=== PATIENT | male | born 1965 | race Caucasian/White ===

== ENCOUNTER 2022-04-19 15:31 | Emergency (ER) | payer OTHER ==
[~2022-04-19] VITALS: Ht 182 cm; Wt 75.0 kg
--- NOTE | 2022-04-19 15:47 | ED Respiratory ---
General Stated Complaint: SHORTNESS OF BREATH Source: patient Exam Limitations: no limitations History of Present Illness Date Seen by Provider: Apr 19, 2022 Time Seen by Provider: 15:31 Initial Comments 57-year-old male with no pertinent past medical history other than lifelong smoker coming in due to difficulty breathing and wheezing. 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 For the past 2 weeks they have been cleaning it significantly with a lot of dust in the air. For about the past week, has noticed more wheezing, and productive cough of yellowish-white sputum. Denies any fever, does have some chest tightness with this. Otherwise denies any nausea, vomit ing, weakness, numbness, severe chest pain, or any other concerns. Has never felt this way before. No prior history of DVT or PE, no recent surgery, no leg swelling or pain, no recent long travel. Allergies and Home Medications Allergies Coded Allergies: Penicillins (Verified Allergy, Unknown, 04/19/22) Patient Home Medication List Home Medication List Reviewed: Yes Doxycycline Hyclate (Doxycycline Hyclate) 100 Mg Tablet, 100 MG PO BID Prescribed by: DANIEL LANZA on 04/19/22 1622 Ipratropium/Albuterol Sulfate (Iprat-Albut 0.5-3(2.5) mg/3 ml) 0.5 Mg-3 Mg (2.5 Mg Base)/3 Ml Ampul.neb, 3 ML IH Q4H PRN for SHORTNESS OF BREATH Prescribed by: DANIEL LANZA on 04/19/22 162 Methylprednisolone (Methylprednisolone Dose Pack) 4 Mg Tab.ds.pk, 4 MG PO UD Prescribed by: DANIEL LANZA on 04/19/22 1622 Review of Systems Review of Systems Constitutional: No fever EENTM: no symptoms reported Respiratory: see HPI Cardiovascular: no symptoms reported Gastrointestinal: no symptoms reported Genitourinary: no symptoms reported Musculoskeletal: no symptoms reported Psychiatric/Neurological: No Symptoms Reported Past Jgxyekn-Iyiokr-Zuyeux Hx Patient Social History Tobacco Use?: Yes Tobacco type used: Cigarettes Substance use?: No Alcohol Use?: Yes Alcohol type: Beer Alcohol Frequency: Once in a while Past Medical History Surgeries: Yes Orthopedic (cervical spine fusion) Physical Exam Vital Signs - First Documented 04/19/22 15:37 Temp 36.7 Pulse 113 Resp 18 B/P (MAP) 151/77 (101) Pulse Ox 94 O2 Delivery Room Air Capillary Refill : Height: '" Weight: lbs. oz. kg; BMI Method: General Appearance: WD/WN, no apparent distress Eyes: Bilateral Eye Normal Inspection HEENT: PERRL/EOMI, normal ENT inspection, pharynx normal Neck: non-tender, full range of motion, supple, normal inspection Respiratory: chest non-tender, no respiratory distress, no accessory muscle use, wheezing Cardiovascular: regular rate, rhythm, no edema, no murmur Gastrointestinal: normal bowel sounds, non tender, soft; No distended, No guarding Extremities: normal range of motion, non-tender, normal inspection, no pedal edema, no calf tenderness, normal capillary refill Neurologic/Psychiatric: no motor/sensory deficits, alert, normal mood/affect Skin: normal color, warm/dry Lymphatic: no adenopathy Progress/Results/Core Measures Suspected Sepsis SIRS Temperature: Pulse: Respiratory Rate: Laboratory Tests 04/19/22 15:47: White Blood Count 10.9 Blood Pressure / Mean: Laboratory Tests 04/19/22 15:47: Creatinine 0.83, Platelet Count 235, Total Bilirubin 0.3 Results/Orders Lab Results Laboratory Tests Test 04/19/22 15:47 Range/Units White Blood Count 10.9 4.3-11.0 10^3/uL Red Blood Count 4.94 4.30-5.52 10^6/uL Hemoglobin 15.0 13.3-17.7 g/dL Hematocrit 44 40-54 % Mean Corpuscular Volume 88 80-99 fL Mean Corpuscular Hemoglobin 30 25-34 pg Mean Corpuscular Hemoglobin Concent 34 32-36 g/dL Red Cell Distribution Width 12.3 10.0-14.5 % Platelet Count 235 130-400 10^3/uL Mean Platelet Volume 10.3 9.0-12.2 fL Immature Granulocyte % (Auto) 0 % Neutrophils (%) (Auto) 65 42-75 % Lymphocytes (%) (Auto) 23 12-44 % Monocytes (%) (Auto) 7 0-12 % Eosinophils (%) (Auto) 5 0-10 % Basophils (%) (Auto) 1 0-10 % Neutrophils # (Auto) 7.1 1.8-7.8 10^3/uL Lymphocytes # (Auto) 2.5 1.0-4.0 10^3/uL Monocytes # (Auto) 0.7 0.0-1.0 10^3/uL Eosinophils # (Auto) 0.5 H 0.0-0.3 10^3/uL Basophils # (Auto) 0.1 0.0-0.1 10^3/uL Immature Granulocyte # (Auto) 0.0 0.0-0.1 10^3/uL Sodium Level 140 135-145 MMOL/L Potassium Level 4.0 3.6-5.0 MMOL/L Chloride Level 104 98-107 MMOL/L Carbon Dioxide Level 27 21-32 MMOL/L Anion Gap 9 5-14 MMOL/L Blood Urea Nitrogen 13 7-18 MG/DL Creatinine 0.83 0.60-1.30 MG/DL Estimat Glomerular Filtration Rate 103 BUN/Creatinine Ratio 16 Glucose Level 100 70-105 MG/DL Calcium Level 9.6 8.5-10.1 MG/DL Corrected Calcium 9.2 8.5-10.1 MG/DL Total Bilirubin 0.3 0.1-1.0 MG/DL Aspartate Amino Transf (AST/SGOT) 18 5-34 U/L Alanine Aminotransferase (ALT/SGPT) 21 0-55 U/L Alkaline Phosphatase 80 40-136 U/L Troponin I < 0.30 <0.30 NG/ML Pro-B-Type Natriuretic Peptide 36.1 <125.0 PG/ML Total Protein 7.3 6.4-8.2 GM/DL Albumin 4.5 3.2-4.5 GM/DL My Orders Orders - DANIEL LANZA MD Monitor-Rhythm Ecg Trace Only (04/19/22 15:48) Pulse Oximetry Order (04/19/22 15:48) Albuterol/Ipra Inhalation Soln (Duoneb I (04/19/22 16:00) Ekg Tracing (04/19/22 15:48) Doxycycline Hyclate Tablet (Vibramycin T (04/19/22 16:00) Cbc With Automated Diff (04/19/22 15:48) Comprehensive Metabolic Panel (04/19/22 15:48) Probnp Fs (04/19/22 15:48) Troponin I Fs (04/19/22 15:48) Chest Pa/Lat (2 View) (04/19/22 15:48) Dexamethasone Injection (Decadron Injec (04/19/22 16:00) Medications Given in ED Current Medications Medications Dose Ordered Sig/Mary Route Start Time Stop Time Status Last Admin Dose Admin Albuterol/ Ipratropium 3 ml ONCE ONCE IH 04/19/22 16:00 04/19/22 16:01 DC 04/19/22 15:57 3 ML Dexamethasone Sodium Phosphate 10 mg ONCE ONCE IV 04/19/22 16:00 04/19/22 16:01 DC 04/19/22 15:57 10 MG Doxycycline Hyclate 100 mg ONCE ONCE PO 04/19/22 16:00 04/19/22 16:01 DC 04/19/22 15:57 100 MG Vital Signs/I&O 04/19/22 15:37 Temp 36.7 Pulse 113 Resp 18 B/P (MAP) 151/77 (101) Pulse Ox 94 O2 Delivery Room Air Capillary Refill : Progress Note : Progress Note 57-year-old male presenting for wheezing, shortness of breath, productive cough. ABCs were intact and vitals were stable on presentation. Physical exam with wheezing in all lung [place]. Given the smoking history and the amount of dust he has been around the past week, I suspect he has undiagnosed COPD with exacerbation versus chronic bronchitis versus potentially pneumonia. Less likely ACS related given all the symptoms have presented in 1 week of chronic wheezing. He has a low risk for PE per [place] criteria and I have a very low suspicion for PE. An IV was placed and basic labs were obtained. His white blood cell count is normal, BMP unremarkable, troponin negative which are all reassuring. Chest x-ray clear with no obvious signs of pneumonia, pneumothorax, pleural effusion, or other abnormality. The patient was given a DuoNeb inhalation, IV dexamethasone, oral doxycycline. After the nebulizer, his symptoms significantly improved, and on repeat exam, his wheezing has nearly completely resolved. We will give him a nebulizer from the ER with a prescription for DuoNeb, steroids, antibiotics. He should follow-up with his regular doctor which he states he can do. ECG Initial ECG Impression Date: Apr 19, 2022 Initial ECG Impression Time: 15:41 Initial ECG Rate: 73 Initial ECG Rhythm: Normal Sinus Comment Narrow QRS, normal axis, no significant ST changes or T wave abnormalities Diagnostic Imaging Diagonstic Imaging: Xray (chest) Comments NAME: MERLINE JAY [facility] REC#: [id number] PT STATUS: REG ER : 1965 PHYSICIAN: DANIEL LANZA MD ADMIT DATE: 04/19/22/ER FS Draft Date of Exam:04/19/22 CHEST PA/LAT (2 VIEW) INDICATION: Wheezing and shortness of breath. PA and lateral chest obtained at 4:03 p.m. Heart and mediastinal silhouette are normal in appearance. The lungs are clear. There is no pneumothorax or pleural fluid. IMPRESSION: Negative chest. Dictated on workstation # [id number] Dict: 04/19/22 1601 Trans: 04/19/22 1603 CV [id number] Interpreted by: TAYLOR RODRIGUES MD Electronically signed by: Departure Impression Primary Impression: Wheezing Additional Impression: Bronchitis Disposition: HOME, SELF-CARE Condition: Stable Departure-Patient Inst. Decision time for Depature: 16:45 Patient Instructions: Wheezing Add. Discharge Instructions: I suspect with your smoking history that you may have something called COPD or some version of chronic bronchitis. We will start you on the nebulizer which you should do every 4 hours as needed for your wheezing and shortness of breath. You will also be on a round of steroids and antibiotics. You can start both of these pills tomorrow morning since she received some in the ER today. A rescue inhaler was also sent to her pharmacy so that you can take it to work. Please schedule an appointment with your regular doctor for follow-up, they may need to do pulmonary function test in the future to get a formal diagnosis. If you can, try to stay away from the dust at work that likely is making this worse. Scripts Albuterol Sulfate (Ventolin Hfa) 90 Mcg Hfa.aer.ad 4 PUFF INH Q4H PRN for WHEEZING for 30 Days, #1 EA 3 Refills 1 PUFF = 90 MCG Prov: DANIEL LANZA MD 04/19/22 Doxycycline Hyclate (Doxycycline Hyclate) 100 Mg Tablet 100 MG PO BID for 7 Days, #14 TAB 0 Refills Prov: DANIEL LANZA MD 04/19/22 Methylprednisolone (Methylprednisolone Dose Pack) 4 Mg Tab.ds.pk 4 MG PO UD for 6 Days, #21 PKG PER DOSE PACK INSTRUCTIONS Prov: DANIEL LANZA MD 04/19/22 Ipratropium/Albuterol Sulfate (Iprat-Albut 0.5-3(2.5) mg/3 ml) 0.5 Mg-3 Mg (2.5 Mg Base)/3 Ml Ampul.neb 3 ML IH Q4H PRN for SHORTNESS OF BREATH for 30 Days, #120 EA Prov: DANIEL LANAZ MD 04/19/22 Work/School Note: Work Release Form Date Seen in the Emergency Department: Apr 19, 2022 Return to Work: Apr 20, 2022 Restrictions: No Restrictions DANIEL LANZA MD Apr 19, 2022 15:47
[2022-04-19 15:57] LABS: BASOPHILS # (AUTO) 0.1 10^3/uL (0.0-0.1); BASOPHILS % (AUTO) 1 % (0-10); EOSINOPHILS # (AUTO) 0.5 10^3/uL (0.0-0.3); EOSINOPHILS % (AUTO) 5 % (0-10); HEMATOCRIT 44 % (40-54); LYMPHOCYTES # (AUTO) 2.5 10^3/uL (1.0-4.0); LYMPHOCYTES % (AUTO) 23 % (12-44); MEAN CORPUSCULAR HEMOGLOBIN 30 pg (25-34); MEAN CORPUSCULAR HGB CONC 34 g/dL (32-36); MEAN CORPUSCULAR VOLUME 88 fL (80-99); MEAN PLATELET VOLUME 10.3 fL (9.0-12.2); MONOCYTES # (AUTO) 0.7 10^3/uL (0.0-1.0); MONOCYTES % (AUTO) 7 % (0-12); NEUTROPHILS # (AUTO) 7.1 10^3/uL (1.8-7.8); NEUTROPHILS % (AUTO) 65 % (42-75); PLATELET COUNT 235 10^3/uL (130-400); WHITE BLOOD COUNT 10.9 10^3/uL (4.3-11.0)
[2022-04-19] MEDS ORDERED: RT-ALBUTEROL/IPRATROPIUM 3 ML (DUONEB) VIAL IH ONE (16:00)
[2022-04-19] MEDS ORDERED: DOXYCYCLINE 100 MG (VIBRAMYCIN) TABLET PO ONE (16:00)
--- NOTE | 2022-04-19 16:04 | Diagnostic Imaging Report ---
INDICATION: Wheezing and shortness of breath. PA and lateral chest obtained at 4:03 p.m. Heart and mediastinal silhouette are normal in appearance. The lungs are clear. There is no pneumothorax or pleural fluid. IMPRESSION: Negative chest. Dictated by: Dictated on workstation # [id number]
[2022-04-19 16:18] LABS: ALKALINE PHOSPHATASE 80 U/L (40-136); BILIRUBIN,TOTAL 0.3 MG/DL (0.1-1.0); BUN/CREATININE RATIO 16; CALCIUM 9.6 MG/DL (8.5-10.1); CARBON DIOXIDE 27 MMOL/L (21-32); CHLORIDE 104 MMOL/L (98-107); CREATININE SERUM 0.83 MG/DL (0.60-1.30); GFR ESTIMATED 103; GLUCOSE 100 MG/DL (70-105); SODIUM 140 MMOL/L (135-145)
[2022-04-19 16:19] LABS: ALANINE AMINOTRANSFERASE 21 U/L (0-55); ALBUMIN 4.5 GM/DL (3.2-4.5); TOTAL PROTEIN 7.3 GM/DL (6.4-8.2)
[2022-04-19] MEDS ORDERED: METH4TAB10 PO (16:22)
[2022-04-19] MEDS ORDERED: IPRA3AMP31 IH (16:22)
[2022-04-19] MEDS ORDERED: DOXY100T2 PO (16:22)
[2022-04-19] MEDS ORDERED: ALBU8.5H6 INH (16:24)
[2022-04-19 16:27] VITALS: BP 132/68
== END 2022-04-19 16:28 | disposition home or self-care (01) ==
LOC: ER FS 15:39
DX: J40 Bronchitis, not specified as acute or chronic (principal); F17.210 Nicotine dependence, cigarettes, uncomplicated; Z28.310 Unvaccinated for COVID-19
CPT/HCPCS: 36415; 71046; 80053; 83880; 84484; 85025; 93005; 93041; 94640